=== PATIENT | male | born 1985 | race Two or more races ===

== ENCOUNTER → 2025-06-09 | Outpatient (CLI) | payer BC, SELFPAY ==
--- NOTE | 2025-06-09 | XR_ITS ---
Examination: Foot, left, 3 views Technique: AP, oblique, lateral views foot, 3 views Date and time of exam: June 09, 2025 1113 hours INDICATIONS: Left foot pain beginning 2 months ago no trauma. FINDINGS: Mild osteopenia. Mild narrowing first metatarsophalangeal joint No fracture 2 mm plantar bony calcaneal spur IMPRESSION: Mild narrowing first metatarsophalangeal joint 2 mm plantar bony calcaneal spur
== END | disposition home or self-care (01) ==
PROVIDERS: PCP Internal Medicine; Referring Provider Internal Medicine; Visit Provider Internal Medicine
DX: M25.872 Other specified joint disorders, left ankle and foot (principal); M77.32 Calcaneal spur, left foot
CPT/HCPCS: 73630